=== PATIENT | male | born 1995 | race African-American/Black ===

== ENCOUNTER 2019-01-18 09:37 | Outpatient (CLI) | payer BC ==
--- NOTE | 2019-01-18 12:03 | RAD ---
3 VIEW RIGHT KNEE: Date: 01/18/19 INDICATION: Injury, pain. FINDINGS: There is no fracture or dislocation. Moderate joint capsular distention is seen at the suprapatellar bursa. IMPRESSION: No acute osseous abnormality right knee. POS: [facility]
== END 2019-01-18 09:38 | disposition home or self-care (01) ==
LOC: BICRAD 09:37
PROVIDERS: ATTEND Physician Assistant Medical
DX: M25.561 Pain in right knee (principal)